=== PATIENT | male | born 1955 | race American Indian/Alaskan Native ===

== ENCOUNTER 2016-09-13 15:46 | Emergency (ER) | payer MEDICAID, MEDICARE, OTHER ==
[2016-09-13 15:58] VITALS: BMI 29.0
[2016-09-13 16:02] VITALS: TEMP 97.4
[2016-09-13] MEDS ORDERED: Albuterol-Ipratrop 3 mg / 0.5 (3 ml) UD IH STA (16:21)
--- NOTE | 2016-09-13 16:22 | ED PDOC ---
Arrival/HPI - General Chief Complaint: Shortness Of Breath Time Seen by Provider: 09/13/16 16:20 Historian: Patient - History of Present Illness Narrative History of Present Illness (Text): 09/13/16 16:21 A 61 year old male, whose past medical history includes asthma, tobacco use, presents to the emergency department complaining of shortness of breath for the past few days. Patient is requesting Steroid "shot" for his asthma, as well as nebulizer. Patient denies fever, cp, abdominal pain, urinary symptoms, leg edema, calf pain, recent travel, blood disorder, dizziness, or abnormal gait. Time/Duration: < week Symptom Course: Unchanged Context: Home Past Medical History - Provider Review Nursing Documentation Reviewed: Yes - Infectious Disease Hx of Infectious Diseases: None - Cardiac Hx Cardiac Disorders: Yes Hx Hypertension: Yes - Pulmonary Hx Respiratory Disorders: Yes Hx Asthma: Yes Hx Chronic Obstructive Pulmonary Disease (COPD): Yes - Neurological Hx Neurological Disorder: No HX Cerebrovascular Accident: No - HEENT Hx HEENT Disorder: No - Renal Hx Renal Disorder: No - Endocrine/Metabolic Hx Endocrine Disorders: Yes Hx Diabetes Mellitus Type 1: Yes - Hematological/Oncological Hx Blood Disorders: No Hx Cancer: No - Integumentary Hx Dermatological Disorder: No - Musculoskeletal/Rheumatological Hx Musculoskeletal Disorders: No - Gastrointestinal Hx Gastrointestinal Disorders: Yes Hx Gastrointestinal Ulcer: Yes - Genitourinary/Gynecological Hx Genitourinary Disorders: No - Psychiatric Hx Psychophysiologic Disorder: Yes Hx Schizophrenia: Yes Hx Substance Use: No - Surgical History Other/Comment: GI surgery due to ulcer 35 yrs. ago - Anesthesia Hx Anesthesia: Yes Hx Anesthesia Reactions: No Hx Malignant Hyperthermia: No - Suicidal Assessment Feels Threatened In Home Enviroment: No Family/Social History - Physician Review Nursing Documentation Reviewed: Yes Family/Social History: No Known Family HX Smoking Status: Current Some Days Smoker Hx Alcohol Use: Yes (stopped last november) Hx Substance Use: No Hx Substance Use Treatment: No Allergies/Home Meds Allergies/Adverse Reactions: Allergies cat dander Allergy (Verified 09/13/16 15:58) ITCHING Home Medications: Home Meds Medication Instructions Recorded Confirmed Losartan [Cozaar] 50 mg PO DAILY 02/11/14 09/13/16 Risperdal 4 mg PO QPM 02/11/14 09/13/16 Simvastatin 10 mg PO DAILY 02/11/14 09/13/16 Albuterol Sulfate [Albuterol Hfa] 0.09 mg IH BID PRN 01/29/15 09/13/16 Metformin HCl [Metformin] 1,000 mg PO BID 01/29/15 09/13/16 Zafirlukast 20 mg PO DAILY 02/04/15 09/13/16 Review of Systems - Review of Systems Constitutional: Normal. absent: Fatigue, Weight Change, Fevers Eyes: Normal ENT: Normal Respiratory: Wheezing. absent: Cough, Sputum Cardiovascular: Normal. absent: Chest Pain, Palpitations Gastrointestinal: Normal. absent: Abdominal Pain, Nausea, Vomiting Genitourinary Male: Normal Musculoskeletal: Normal Skin: Normal. absent: Rash Neurological: Normal. absent: Headache, Dizziness, Focal Weakness, Gait Changes , Speech Changes, Facial Droop, Disequilibrium Endocrine: Normal Hemo/Lymphatic: Normal Psychiatric: Normal Physical Exam Vital Signs Temp Pulse Resp BP Pulse Ox 09/13/16 16:01 97.4 F L 94 H 19 143/87 97 Temperature: Afebrile Blood Pressure: Normal Pulse: Regular Respiratory Rate: Normal Appearance: Positive for: Well-Appearing, Non-Toxic, Comfortable Pain Distress: None Mental Status: Positive for: Alert and Oriented X 3 - Systems Exam Head: Present: Atraumatic, Normocephalic Pupils: Present: PERRL Extroacular Muscles: Present: EOMI Conjunctiva: Present: Normal Mouth: Present: Moist Mucous Membranes Neck: Present: Normal Range of Motion Respiratory/Chest: Present: Good Air Exchange, Wheezes (mild generalized wheezing.). No: Respiratory Distress, Accessory Muscle Use, Decreased Breath Sounds, Rales, Retracting, Rhonchi, Tachypneic Cardiovascular: Present: Regular Rate and Rhythm, Normal S1, S2. No: Murmurs Abdomen: Present: Normal Bowel Sounds. No: Tenderness, Distention, Peritoneal Signs Back: Present: Normal Inspection Upper Extremity: Present: Normal Inspection, Normal ROM. No: Cyanosis, Edema Lower Extremity: Present: Normal Inspection, Normal ROM. No: Edema Neurological: Present: GCS=15, CN II-XII Intact, Speech Normal, Motor Func Grossly Intact, Normal Sensory Function, Normal Cerebellar Funct, Gait Normal, Memory Normal Skin: Present: Warm, Dry, Normal Color. No: Rashes Psychiatric: Present: Alert, Oriented x 3, Normal Insight, Normal Concentration Medical Decision Making ED Course and Treatment: 09/13/16 16:33 Patient speaks in full sentence. Patient requested Steroid IVP. Patient understands steroid are associated with osteoporosis, DM, glaucoma, AVN, and other bone condition. He still requested Steroid injection for his asthma. 09/13/16 17:02 Re-evaluation. Patient feels better. Discussed results and plan with patient who expresses understanding. Counseling was provided regarding the diagnosis and prognosis. All questions answered and there is agreement with the plan to discharge home with instructions. Patient stable for discharge. Return if symptoms persist or worsen. Lungs CTA b/l. No rhonchi, or wheezing Re-evaluation Time: 17:00 Reassessment Condition: Re-examined, Improving,but remains with symptoms - Medication Orders Current Medication Orders: Discontinued Medications Albuterol/Ipratropium (Duoneb 3 Mg/0.5 Mg (3 Ml) Ud) 6 ml IH STAT STA Stop: 09/13/16 16:22 Last Admin: 09/13/16 16:48 Dose: 6 ml Methylprednisolone (Solu-Medrol) 125 mg IVP STAT STA Stop: 09/13/16 16:21 Last Admin: 09/13/16 16:48 Dose: 125 mg Disposition/Present on Arrival - Present on Arrival Any Indicators Present on Arrival: No History of DVT/PE: No History of Uncontrolled Diabetes: No Urinary Catheter: No History of Decub. Ulcer: No History Surgical Site Infection Following: None - Disposition Have Diagnosis and Disposition been Completed?: Yes Diagnosis: Asthma exacerbation Disposition: HOME/ ROUTINE Disposition Time: 17:02 Patient Plan: Discharge Patient Problems: Current Active Problems Problem Status Onset Asthma exacerbation Acute Condition: GOOD Discharge Instructions (ExitCare): Asthma (ED) Additional Instructions: Call private doctor for follow up visit in 1-2 days. Take medication as instructed. Return to emergency if symptoms worsen. Prescriptions: Albuterol 0.083% [Albuterol 0.083% Inhal Crys (2.5 mg/3 ml) UD] 2.5 mg IH Q6H PRN #1 packet PRN Reason: Wheezing Prednisone [Deltasone] 40 mg PO DAILY #8 tablet Forms: [employer] ([place])
[2016-09-13 17:14] VITALS: RESP 18
[2016-09-13 17:27] VITALS: BP 139/93; PULSE 99; O2SAT 98
== END 2016-09-13 17:35 | disposition home or self-care (01) ==
LOC: ED 15:46
DX: J45.901 Unspecified asthma with (acute) exacerbation (principal)
CPT/HCPCS: 96374; 99284; J2930

== ENCOUNTER 2016-10-08 14:14 | Emergency (ER) | payer MEDICARE, OTHER ==
[2016-10-08 14:15] VITALS: BMI 29.0
[2016-10-08 14:20] VITALS: TEMP 99; O2SAT 98
[2016-10-08] MEDS ORDERED: Albuterol-Ipratrop 3 mg / 0.5 (3 ml) UD IH STA (14:40)
[2016-10-08] MEDS ORDERED: Magnesium Sulfate 2 GM in Sodium Chloride 0.9% 100 ML IVPB ONE (14:40)
[2016-10-08 15:07] LABS: BASO # 0.03 K/mm3 (0.0-2.0); BASO % 0.3 % (0.0-3.0); EOS # 0.2 (0.0-0.7); EOS % 1.6 % (1.5-5.0); GRAN # 5.6 (1.4-6.5); GRAN % 57.2 % (50.0-68.0); HEMATOCRIT 41.3 % (42.0-52.0); LYMPH # 3.1 (1.2-3.4); MEAN CELL VOLUME 87.7 fl (80.0-105.0); MEAN CORPUSCULAR HEMOGLOBIN 30.4 pg (25.0-35.0); MEAN CORPUSCULAR HGB CONC 34.6 g/dl (31.0-37.0); MEAN PLATELET VOLUME 10.5 fl (7.0-11.0); MONO # 0.9 (0.1-0.6); MONO % 8.9 % (1.0-6.0); RED CELL DISTRIBUTION WIDTH 14.2 % (11.5-14.5); WHITE BLOOD COUNT 9.8 10^3/ul (4.5-11.0)
--- NOTE | 2016-10-08 15:18 | RAD ---
HISTORY: SOB COMPARISON: Chest x-ray performed 04/18/16 TECHNIQUE: Chest, one view. FINDINGS: Examination limited by habitus. LUNGS: No focal consolidation. Please note that chest x-ray has limited sensitivity for the detection of pulmonary masses. PLEURA: No significant pleural effusion identified. No definite pneumothorax . CARDIOVASCULAR: Heart size appears within normal limits. Atherosclerotic calcifications of the aorta. OSSEOUS STRUCTURES: Degenerative changes. VISUALIZED UPPER ABDOMEN: Unremarkable. OTHER FINDINGS: None. IMPRESSION: No focal consolidation, significant pleural effusion, or definite pneumothorax identified.
[2016-10-08 15:19] LABS: ALB/GLOB RATIO 1.5 (1.1-1.8); ALKALINE PHOSPHATASE 48 U/L (38-126); ALT/SGPT 62 U/L (7-56); AST/SGOT 41 U/L (17-59); BILIRUBIN,TOTAL 0.6 mg/dL (0.2-1.3); BLOOD UREA NITROGEN 13 mg/dL (7-21); CALCIUM 9.3 mg/dL (8.4-10.5); CARBON DIOXIDE 25 mmol/L (21-33); CHLORIDE 103 mmol/L (98-107); GFR AFRICAN-AMERICAN > 60; GLUCOSE,RANDOM 132 mg/dL (70-110); POTASSIUM 4.6 mmol/L (3.6-5.0); SODIUM 138 mmol/L (132-148); TOTAL PROTEIN 7.4 g/dL (5.8-8.3)
[2016-10-08 15:41] LABS: TROPONIN I 0.19 ng/mL
[2016-10-08 16:29] VITALS: BP 153/92; PULSE 85; RESP 16
--- NOTE | 2016-10-08 17:53 | ED PDOC ---
Arrival/HPI - General Chief Complaint: Shortness Of Breath Time Seen by Provider: 10/08/16 14:23 Historian: Patient - History of Present Illness Narrative History of Present Illness (Text): 10/08/16 17:53 A 61 year old male with a smoking social history, whose past medical history includes, urticaria, schizophrenia, and asthma, presents to the emergency department for asthma symptoms, which began about 3 days ago. The patient denies any cough, fever, chest pain, abdominal pain, or any other complaints at this time. The patient denies any recent travel, suicidal or homicidal ideation , or hallucinations. Time/Duration: < week (x 3 days ) Symptom Onset: Sudden, Gradual Symptom Course: Unchanged Activities at Onset: Light Context: Home Past Medical History - Provider Review Nursing Documentation Reviewed: Yes - Infectious Disease Hx of Infectious Diseases: None - Cardiac Hx Cardiac Disorders: Yes Hx Hypertension: Yes - Pulmonary Hx Respiratory Disorders: Yes Hx Asthma: Yes Hx Chronic Obstructive Pulmonary Disease (COPD): Yes - Neurological Hx Neurological Disorder: No HX Cerebrovascular Accident: No - HEENT Hx HEENT Disorder: No - Renal Hx Renal Disorder: No - Endocrine/Metabolic Hx Endocrine Disorders: Yes Hx Diabetes Mellitus Type 1: Yes - Hematological/Oncological Hx Blood Disorders: No Hx Cancer: No - Integumentary Hx Dermatological Disorder: No - Musculoskeletal/Rheumatological Hx Musculoskeletal Disorders: No - Gastrointestinal Hx Gastrointestinal Disorders: Yes Hx Gastrointestinal Ulcer: Yes - Genitourinary/Gynecological Hx Genitourinary Disorders: No - Psychiatric Hx Psychophysiologic Disorder: Yes Hx Schizophrenia: Yes Hx Substance Use: No - Surgical History Other/Comment: GI surgery due to ulcer 35 yrs. ago - Anesthesia Hx Anesthesia: Yes Hx Anesthesia Reactions: No Hx Malignant Hyperthermia: No - Suicidal Assessment Feels Threatened In Home Enviroment: No Family/Social History - Physician Review Nursing Documentation Reviewed: Yes Family/Social History: No Known Family HX Smoking Status: Current Some Days Smoker Hx Alcohol Use: Yes (stopped last november) Hx Substance Use: No Hx Substance Use Treatment: No Allergies/Home Meds Allergies/Adverse Reactions: Allergies cat dander Allergy (Verified 10/08/16 14:20) ITCHING Home Medications: Home Meds Medication Instructions Recorded Confirmed Losartan [Cozaar] 50 mg PO DAILY 02/11/14 10/08/16 Risperdal 4 mg PO QPM 02/11/14 10/08/16 Simvastatin 10 mg PO DAILY 02/11/14 10/08/16 Albuterol Sulfate [Albuterol Hfa] 0.09 mg IH BID PRN 01/29/15 10/08/16 Metformin HCl [Metformin] 1,000 mg PO BID 01/29/15 10/08/16 Zafirlukast 20 mg PO DAILY 02/04/15 10/08/16 Prednisone [Deltasone] 20 mg PO DAILY 10/08/16 10/08/16 Review of Systems - Physician Review All systems were reviewed & negative as marked: Yes - Review of Systems Constitutional: Other (asthma like symptoms ). absent: Fevers Respiratory: SOB. absent: Cough Cardiovascular: Chest Pain Gastrointestinal: absent: Abdominal Pain Psychiatric: absent: Suicidal Ideation Physical Exam Vital Signs Temp Pulse Resp BP Pulse Ox 10/08/16 16:28 85 16 153/92 H 98 10/08/16 15:24 18 10/08/16 14:16 99 F 100 H 21 125/86 98 Temperature: Afebrile Blood Pressure: Normal Pulse: Tachycardic Respiratory Rate: Normal Appearance: Positive for: Well-Appearing, Non-Toxic, Comfortable Pain Distress: None Mental Status: Positive for: Alert and Oriented X 3 - Systems Exam Head: Present: Atraumatic, Normocephalic Pupils: Present: PERRL Extroacular Muscles: Present: EOMI Conjunctiva: Present: Normal Mouth: Present: Moist Mucous Membranes Neck: Present: Normal Range of Motion Respiratory/Chest: Present: Wheezes (bilateral expiratory), Other (good air enterance). No: Respiratory Distress, Accessory Muscle Use Cardiovascular: Present: Regular Rate and Rhythm, Normal S1, S2. No: Murmurs Abdomen: Present: Normal Bowel Sounds. No: Tenderness, Distention, Peritoneal Signs Back: Present: Normal Inspection Upper Extremity: Present: Normal Inspection. No: Cyanosis, Edema Lower Extremity: Present: Normal Inspection. No: Edema Neurological: Present: GCS=15, CN II-XII Intact, Speech Normal Skin: Present: Warm, Dry, Normal Color. No: Rashes Psychiatric: Present: Alert, Oriented x 3, Normal Insight, Normal Concentration , Other (The patient is talking in full sentences.). No: Suicidal Ideation, Homicidal Ideation, Hallucinations Medical Decision Making ED Course and Treatment: 10/08/16 17:57 Impression: A 61 year old male with asthma like symptoms. Differential Diagnosis included but are not limited to: Plan: -- EKG -- Chest X-ray -- Labs -- Aspirin, Duoneb, IV Fluids -- Reassess and disposition Prior Visits: Notes and results from previous visits were reviewed. The patient was last seen in the emergency department on 09/13/16 for shortness of breath. The patient was discharged home. Progress Notes: EKG: Ordered, reviewed, and independently interpreted the EKG. Rate : 87 BPM Rhythm : NSR Interpretation : No ST-segment elevations or depressions, no T-wave inversions, normal intervals. Comparison : No previous EKG for comparison. I have reviewed labs with the patient, especially on the elevated Troponin levels. I explained to the patient that this may be an indication of a silent recent heart attack, which requires hospitalization for further evaluation. The patient further denied suicidal ideation and hallucinations and was able to repeat what I told him about his elevated Troponin levels. The patient understands his risk for sudden and he signed himself out against medical advice. Leaving Against Medical Advice (AMA): The patient is choosing to leave against medical advice. I have personally explained to the patient that choosing to do so may result in permanent bodily harm or . I have discussed at great length that without further evaluation and monitoring there may be unforeseen circumstances and/or deterioration causing permanent bodily harm or as a result of their choice. The patient is alert, oriented, and shows the mental capacity to make clear decisions regarding the patients health care at this time. The patient continues to wish to leave against medical advice. In light of the patients decision to leave against medical advice, follow-up has been arranged and the patient is aware of the importance to following up as instructed. The patient has been advised that they should return to the emergency room immediately if they change their mind at any time, or if their condition begins to change or worsen in any way. - Lab Interpretations Lab Results: 10/08/16 15:00 10/08/16 15:00 Lab Results 10/08/16 15:00: Sodium 138, Potassium 4.6, Chloride 103, Carbon Dioxide 25, Anion Gap 15, BUN 13, Creatinine 1.1, Est GFR ( Amer) > 60, Est GFR (Non- Af Amer) > 60, Random Glucose 132 H, Calcium 9.3, Total Bilirubin 0.6, AST 41, ALT 62 H, Alkaline Phosphatase 48, Lactate Dehydrogenase 570, Total Creatine Kinase 741 H, CK-MB (CK-2) 5.0 H, CK-MB (CK-2) % 0.7 L, Troponin I 0.19 H*, NT- Pro-B Natriuret Pep < 11.1, Total Protein 7.4, Albumin 4.4, Globulin 2.9, Albumin/Globulin Ratio 1.5 10/08/16 15:00: WBC 9.8 D, RBC 4.71, Hgb 14.3, Hct 41.3 L, MCV 87.7, MCH 30.4, MCHC 34.6, RDW 14.2, Plt Count 246, MPV 10.5, Gran % 57.2, Lymph % (Auto) 32.0, [place] % (Auto) 8.9 H, Eos % (Auto) 1.6, Baso % (Auto) 0.3, Gran # 5.60, Lymph # 3.1, [place] # 0.9 H, Eos # 0.2, Baso # 0.03 - RAD Interpretation Radiology Orders: 10/08/16 14:39 CHEST PORTABLE [RAD] Stat - Medication Orders Current Medication Orders: Discontinued Medications Albuterol/Ipratropium (Duoneb 3 Mg/0.5 Mg (3 Ml) Ud) 3 ml IH STAT STA Stop: 10/08/16 14:41 Last Admin: 10/08/16 15:23 Dose: 3 ml Aspirin (Aspirin) 325 mg PO STAT STA Stop: 10/08/16 16:09 Last Admin: 10/08/16 16:15 Dose: 325 mg Magnesium Sulfate 2 gm/ Sodium (Chloride) 104 mls @ 102 mls/hr IVPB ONCE ONE Stop: 10/08/16 15:41 Last Admin: 10/08/16 15:23 Dose: 102 mls/hr Methylprednisolone (Solu-Medrol) 125 mg IVP STAT STA Stop: 10/08/16 14:40 Last Admin: 10/08/16 15:23 Dose: 125 mg - Scribe Statement The provider has reviewed the documentation as recorded by the Kimberly Plasencia Provider Scribe Attestation: All medical record entries made by the Lacyibjorge were at my direction and personally dictated by me. I have reviewed the chart and agree that the record accurately reflects my personal performance of the history, physical exam, medical decision making, and the department course for this patient. I have also personally directed, reviewed, and agree with the discharge instructions and disposition. Disposition/Present on Arrival - Present on Arrival Any Indicators Present on Arrival: No History of DVT/PE: No History of Uncontrolled Diabetes: No Urinary Catheter: No History of Decub. Ulcer: No History Surgical Site Infection Following: None - Disposition Have Diagnosis and Disposition been Completed?: Yes Diagnosis: NSTEMI (non-ST elevated myocardial infarction), Asthma Disposition: AGAINST MEDICAL ADVICE Disposition Time: 16:10 Condition: SERIOUS Discharge Instructions (ExitCare): Myocardial Infarction (GEN), Asthma (ED) Additional Instructions: Thank you for letting us take care of you today. Your provider was Dr. Wheatley. You were treated for asthma and a heart attack. The emergency medical care you received today was directed at your acute symptoms. If you were prescribed any medication, please fill it and take as directed. It may take several days for your symptoms to resolve. Return to the Emergency Department if your symptoms worsen, do not improve, or if you have any other problems. Please contact your doctor or call one of the physicians/clinics you have been referred to that are listed on the Patient Visit Information form that is included in your discharge packet. Bring any paperwork you were given at discharge with you along with any medications you are taking to your follow up visit. Our treatment cannot replace ongoing medical care by a primary care provider (PCP) outside of the emergency department. [facility] care [facility]. YOU HAD A HEART ATTACK. YOU SHOULD HAVE STAYED IN THE HOSPITAL. YOU HAVE LEFT AGAINST MEDICAL ADVICE. FOLLOW UP IMMEDIATELY WITH YOUR DOCTOR OR THE EMERGENCY ROOM. IF YOU EXPERIENCE ANY PAIN, RETURN TO THE EMERGENCY ROOM IMMEDIATELY. Prescriptions: Aspirin 325 mg PO DAILY #14 tab predniSONE [Prednisone] 40 mg PO DAILY #10 tab Referrals: [facility] [Outside] - Follow up with primary [facility] [place] - Follow up with primary Forms: [employer] (Citizen Of [place])
--- NOTE | 2016-10-10 07:26 | CARD ---
APPROVED REPORT EKG Measurement Heart [id number] <Conclusion> Normal sinus rhythm Normal ECG
== END 2016-10-08 16:34 | disposition left against medical advice (07) ==
LOC: ED 14:14
DX: I21.4 Non-ST elevation (NSTEMI) myocardial infarction (principal); J45.909 Unspecified asthma, uncomplicated
CPT/HCPCS: 71010; 80053; 82550; 82553; 83615; 83880; 84484; 85025; 93005; 96374; 99284; J2930; J3475

== ENCOUNTER 2017-08-05 12:56 | Emergency (ER) | payer MEDICARE, OTHER ==
[2017-08-05] MEDS ORDERED: Albuterol-Ipratrop 3 mg / 0.5 (3 ml) UD IH STA (13:01)
[2017-08-05 13:05] VITALS: BMI 30.9
--- NOTE | 2017-08-05 13:46 | ED PDOC ---
Arrival/HPI - General Chief Complaint: Respiratory Distress Time Seen by Provider: 08/05/17 12:59 Historian: Patient - History of Present Illness Narrative History of Present Illness (Text): 08/05/17 13:43 62yo male with pmhx of Asthma, schizophrenia and hypertension who present with complaint of wheezing x 3days. States he ran out of his inhaler. Denies fever, chills, cough, sick contact, travel, chest pain, SOB, any other complaint. Past Medical History - Provider Review Nursing Documentation Reviewed: Yes - Infectious Disease Hx of Infectious Diseases: None - Cardiac Hx Cardiac Disorders: Yes Hx Hypertension: Yes - Pulmonary Hx Respiratory Disorders: Yes Hx Asthma: Yes Hx Chronic Obstructive Pulmonary Disease (COPD): Yes - Neurological Hx Neurological Disorder: No HX Cerebrovascular Accident: No - HEENT Hx HEENT Disorder: No - Renal Hx Renal Disorder: No - Endocrine/Metabolic Hx Endocrine Disorders: Yes Hx Diabetes Mellitus Type 1: Yes - Hematological/Oncological Hx Blood Disorders: No Hx Cancer: No - Integumentary Hx Dermatological Disorder: No - Musculoskeletal/Rheumatological Hx Musculoskeletal Disorders: No - Gastrointestinal Hx Gastrointestinal Disorders: Yes Hx Gastrointestinal Ulcer: Yes - Genitourinary/Gynecological Hx Genitourinary Disorders: No - Psychiatric Hx Psychophysiologic Disorder: Yes Hx Schizophrenia: Yes Hx Substance Use: No - Surgical History Other/Comment: GI surgery due to ulcer 35 yrs. ago - Anesthesia Hx Anesthesia: Yes Hx Anesthesia Reactions: No Hx Malignant Hyperthermia: No - Suicidal Assessment Feels Threatened In Home Enviroment: No Family/Social History - Physician Review Nursing Documentation Reviewed: Yes Family/Social History: Unknown Family HX Smoking Status: Current Some Days Smoker Hx Alcohol Use: Yes (stopped last november) Hx Substance Use: No Hx Substance Use Treatment: No Allergies/Home Meds Allergies/Adverse Reactions: Allergies cat dander Allergy (Verified 08/05/17 13:01) ITCHING Home Medications: Home Meds Medication Instructions Recorded Confirmed Losartan [Cozaar] 50 mg PO DAILY 02/11/14 08/05/17 Simvastatin 10 mg PO DAILY 02/11/14 08/05/17 Metformin HCl [Metformin] 1,000 mg PO BID 01/29/15 08/05/17 Risperidone [Risperdal] 4 mg PO QPM 08/05/17 08/05/17 Zafirlukast [Accolate] 20 mg PO DAILY 08/05/17 08/05/17 Review of Systems - Physician Review All systems were reviewed & negative as marked: Yes - Review of Systems Constitutional: Normal Eyes: Normal ENT: Normal Respiratory: Wheezing. absent: SOB, Cough, Sputum Cardiovascular: Normal Gastrointestinal: Normal Genitourinary Male: Normal Musculoskeletal: Normal Skin: Normal Neurological: Normal Endocrine: Normal Hemo/Lymphatic: Normal Psychiatric: Normal Physical Exam Vital Signs Reviewed: Yes Vital Signs Temp Pulse Resp BP Pulse Ox 08/05/17 13:04 20 97 08/05/17 13:02 97.6 F 95 H 18 134/97 H 98 Temperature: Afebrile Blood Pressure: Normal Pulse: Regular Respiratory Rate: Normal Appearance: Positive for: Well-Appearing, Non-Toxic, Comfortable Pain Distress: None Mental Status: Positive for: Alert and Oriented X 3 - Systems Exam Head: Present: Atraumatic, Normocephalic Pupils: Present: PERRL Extroacular Muscles: Present: EOMI Conjunctiva: Present: Normal Mouth: Present: Moist Mucous Membranes Neck: Present: Normal Range of Motion Respiratory/Chest: Present: Clear to Auscultation, Good Air Exchange, Wheezes ( Very minimal expiratory wheeze at the bases). No: Respiratory Distress, Accessory Muscle Use, Decreased Breath Sounds, Rales, Retracting, Rhonchi, Tachypneic Cardiovascular: Present: Regular Rate and Rhythm, Normal S1, S2. No: Murmurs Abdomen: No: Tenderness, Distention, Peritoneal Signs Back: Present: Normal Inspection Upper Extremity: Present: Normal Inspection. No: Cyanosis, Edema Lower Extremity: Present: Normal Inspection. No: Edema Neurological: Present: GCS=15, CN II-XII Intact, Speech Normal Skin: Present: Warm, Dry, Normal Color. No: Rashes Psychiatric: Present: Alert, Oriented x 3, Normal Insight, Normal Concentration Medical Decision Making ED Course and Treatment: 08/05/17 13:55 PT present to ED for stated history. He was not hypoxic on presentation and talking in full sentence and ambulating without distress. He was treated in ED with Duoneb and prednisone . On re evaluation his Lung was CTA b/l. He was DC home with a rx of Prednisone and albuterol. Referred to his PMD. - Medication Orders Current Medication Orders: Discontinued Medications Albuterol/Ipratropium (Duoneb 3 Mg/0.5 Mg (3 Ml) Ud) 3 ml IH Q15M STA Stop: 08/05/17 13:02 Last Admin: 08/05/17 13:08 Dose: 3 ml Prednisone (Prednisone Tab) 40 mg PO STAT STA Stop: 08/05/17 13:02 Last Admin: 08/05/17 13:07 Dose: 40 mg Disposition/Present on Arrival - Present on Arrival Any Indicators Present on Arrival: No History of DVT/PE: No History of Uncontrolled Diabetes: No Urinary Catheter: No History of Decub. Ulcer: No History Surgical Site Infection Following: None - Disposition Have Diagnosis and Disposition been Completed?: Yes Diagnosis: Asthma attack Disposition: HOME/ ROUTINE Disposition Time: 13:45 Patient Plan: Discharge Patient Problems: Current Active Problems Problem Status Onset Asthma attack Acute Condition: STABLE Discharge Instructions (ExitCare): Asthma in Adults Additional Instructions: Follow up with your doctor Return to ED for any new symptoms Prescriptions: Albuterol HFA [Ventolin HFA 90 mcg/actuation (8 g)] 2 puff IH [id number] #1 puff predniSONE [Prednisone] 20 mg PO DAILY #3 tab Referrals: [facility] [place] [facility] [place] - Follow up with primary Forms: [employer] ([place])
[2017-08-05 14:07] VITALS: BP 132/78; PULSE 88; RESP 18; TEMP 98.6; O2SAT 99
== END 2017-08-05 14:00 | disposition home or self-care (01) ==
LOC: ED 12:56
DX: J45.909 Unspecified asthma, uncomplicated (principal); F20.9 Schizophrenia, unspecified; I10 Essential (primary) hypertension

== ENCOUNTER 2017-10-23 15:29 | Emergency (ER) | payer MEDICARE, OTHER ==
[2017-10-23 15:29] VITALS: BMI 30.9
--- NOTE | 2017-10-23 16:25 | ED PDOC ---
Arrival/HPI - General Time Seen by Provider: 10/23/17 15:49 - History of Present Illness Narrative History of Present Illness (Text): 10/23/17 16:23 62 yo male hx of asthma, schizophrenia, presents iwth cough/wheezing sob for last few days. well known to er. no cp, abd pain, chest tighntess. specifically requests "iv steriod shot" Past Medical History - Infectious Disease Hx of Infectious Diseases: None - Cardiac Hx Hypertension: Yes - Pulmonary Hx Asthma: Yes Hx Chronic Obstructive Pulmonary Disease (COPD): Yes - Neurological Hx Neurological Disorder: No HX Cerebrovascular Accident: No - HEENT Hx HEENT Disorder: No - Renal Hx Renal Disorder: No - Endocrine/Metabolic Hx Endocrine Disorders: Yes Hx Diabetes Mellitus Type 1: Yes - Hematological/Oncological Hx Blood Disorders: No Hx Cancer: No - Integumentary Hx Dermatological Disorder: No - Musculoskeletal/Rheumatological Hx Musculoskeletal Disorders: No - Gastrointestinal Hx Gastrointestinal Ulcer: Yes - Genitourinary/Gynecological Hx Genitourinary Disorders: No - Psychiatric Hx Schizophrenia: Yes Hx Substance Use: No - Surgical History Other/Comment: GI surgery due to ulcer 35 yrs. ago - Anesthesia Hx Anesthesia: Yes Hx Anesthesia Reactions: No Hx Malignant Hyperthermia: No - Suicidal Assessment Feels Threatened In Home Enviroment: No Family/Social History Family/Social History: Unknown Family HX Smoking Status: Heavy Smoker > 10 Cigarettes Daily Hx Alcohol Use: Yes (stopped last november) Hx Substance Use: No Hx Substance Use Treatment: No Allergies/Home Meds Allergies/Adverse Reactions: Allergies cat dander Allergy (Verified 10/06/17 18:56) ITCHING Home Medications: Home Meds Medication Instructions Recorded Confirmed Losartan [Cozaar] 50 mg PO DAILY 02/11/14 08/05/17 Simvastatin 10 mg PO DAILY 02/11/14 08/05/17 Metformin HCl [Metformin] 1,000 mg PO BID 01/29/15 08/05/17 Risperidone [Risperdal] 4 mg PO QPM 08/05/17 08/05/17 Zafirlukast [Accolate] 20 mg PO DAILY 08/05/17 08/05/17 Review of Systems - Review of Systems Constitutional: Normal Eyes: Normal ENT: Normal Respiratory: Cough, Wheezing Cardiovascular: Normal Gastrointestinal: Normal Genitourinary Male: Normal Musculoskeletal: Normal Skin: Normal Neurological: Normal Endocrine: Normal Hemo/Lymphatic: Normal Psychiatric: Normal Physical Exam Vital Signs Temp Pulse Resp BP Pulse Ox 10/23/17 19:51 98.2 F 85 18 125/65 94 L 10/23/17 15:29 14 Temperature: Afebrile Blood Pressure: Normal Pulse: Regular Respiratory Rate: Normal Appearance: Positive for: Well-Appearing, Non-Toxic, Comfortable, Other ( smiling joking with staff) Pain Distress: None Mental Status: Positive for: Alert and Oriented X 3 - Systems Exam Head: Present: Atraumatic, Normocephalic Pupils: Present: PERRL Extroacular Muscles: Present: EOMI Conjunctiva: Present: Normal Mouth: Present: Moist Mucous Membranes Neck: Present: Normal Range of Motion Respiratory/Chest: Present: Good Air Exchange, Wheezes (b/l to all lung [place]) . No: Respiratory Distress, Accessory Muscle Use Cardiovascular: Present: Regular Rate and Rhythm, Normal S1, S2. No: Murmurs Abdomen: No: Tenderness, Distention, Peritoneal Signs Back: Present: Normal Inspection Upper Extremity: Present: Normal Inspection. No: Cyanosis, Edema Lower Extremity: Present: Normal Inspection. No: Edema Neurological: Present: GCS=15, CN II-XII Intact, Speech Normal Skin: Present: Warm, Dry, Normal Color. No: Rashes Psychiatric: Present: Alert, Oriented x 3, Normal Insight, Normal Concentration Medical Decision Making ED Course and Treatment: 10/23/17 16:27 Impression: 62 year old male presents to the Emergency department complaining of shortness of breath. Plan: -- EKG -- Labs -- Chest X-ray -- Albuterol -- Solumedrol -- Reassess and disposition Prior Visits: Notes and results from previous visits were reviewed. Progress Notes: 10/23/17 17:25 EKG: Ordered, reviewed, and independently interpreted the EKG. Rate : 76 BPM Rhythm : NSR Interpretation : No ST-segment elevations or depressions, no T-wave inversions, normal intervals. 10/25/17 19:36 pt endorsed pending chem, and reassess and final dispo - Lab Interpretations Lab Results: 10/23/17 18:41 10/23/17 18:41 Lab Results 10/23/17 18:41: Sodium 139, Potassium 4.9, Chloride 103, Carbon Dioxide 27, Anion Gap 15, BUN 19, Creatinine 1.2, Est GFR ( Amer) > 60, Est GFR (Non- Af Amer) > 60, Random Glucose 132 H, Calcium 9.7, Total Bilirubin 0.8, AST 40, ALT 47, Alkaline Phosphatase 50, Lactate Dehydrogenase 594, Total Creatine Kinase 562 H, CK-MB (CK-2) 8.0 H, CK-MB (CK-2) % 1.4 L, Troponin I < 0.01 D, Total Protein 7.4, Albumin 4.5, Globulin 2.9, Albumin/Globulin Ratio 1.5 10/23/17 18:41: PT 11.4, INR 1.00, APTT 28.7 10/23/17 18:41: WBC 14.6 H D, RBC 4.69, Hgb 14.1, Hct 41.9 L, MCV 89.3, MCH 30.1 , MCHC 33.7, RDW 14.1, Plt Count 271, MPV 10.8, Gran % 67.2, Lymph % (Auto) 25.9 , [place] % (Auto) 6.8 H, Eos % (Auto) 0.0 L, Baso % (Auto) 0.1, Gran # 9.82 H, Lymph # (Auto) 3.8 H, [place] # (Auto) 1.0 H, Eos # (Auto) 0.0, Baso # (Auto) 0.01 - RAD Interpretation Radiology Orders: 10/23/17 16:22 CXR [CHEST TWO VIEWS (PA/LAT)] [RAD] Stat - Medication Orders Current Medication Orders: Discontinued Medications Albuterol Sulfate (Albuterol 0.083% Inhal Crys (2.5 Mg/3 Ml) Ud) 2.5 mg INH STAT STA Stop: 10/23/17 20:21 Last Admin: 10/23/17 20:35 Dose: 2.5 mg Albuterol/Ipratropium (Duoneb 3 Mg/0.5 Mg (3 Ml) Ud) 3 ml IH Q15M [id number] Stop: 10/23/17 17:01 Last Admin: 10/23/17 19:10 Dose: 3 ml Methylprednisolone (Solu-Medrol) 125 mg IVP STAT STA Stop: 10/23/17 16:23 Last Admin: 10/23/17 18:10 Dose: 125 mg IVP Administration Document 10/23/17 18:10 HI (Rec: 10/23/17 20:35 HI [id number]) Charges for Administration # of IVP Administrations 1 Disposition/Present on Arrival - Present on Arrival Any Indicators Present on Arrival: No History of DVT/PE: No History of Uncontrolled Diabetes: No Urinary Catheter: No History Surgical Site Infection Following: None - Disposition Have Diagnosis and Disposition been Completed?: Yes Diagnosis: COPD exacerbation Disposition: HOME/ ROUTINE Disposition Time: 07:00 Condition: STABLE Discharge Instructions (ExitCare): Chronic Obstructive Pulmonary Disease (COPD) , Including Emphysema Prescriptions: Albuterol HFA [Ventolin HFA 90 mcg/actuation (8 g)] 2 puff IH [id number] 30 Days # 1 puff Methylprednisolone [Medrol Dose Pack (21 tabs)] 4 mg PO DAILY #21 mg Referrals: Jose Reddy MD [Primary Care Provider] - Follow up with primary Forms: [employer] (Hungarian)
--- NOTE | 2017-10-23 17:56 | RAD ---
Date of service: 10/23/2017 HISTORY: asthma COMPARISON: 10/08/2016. TECHNIQUE: Chest PA and lateral FINDINGS: LUNGS: No active pulmonary disease. PLEURA: No significant pleural effusion identified. No pneumothorax apparent. CARDIOVASCULAR: No radiographic findings to suggest acute or significant cardiovascular disease. OSSEOUS STRUCTURES: No significant abnormalities. VISUALIZED UPPER ABDOMEN: Normal. OTHER FINDINGS: None. IMPRESSION: No active disease. No significant interval change compared to the prior examination(s).
[2017-10-23] MEDS: Albuterol-Ipratrop 3 mg / 0.5 (3 ml) UD IH SCH ×3 (18:10→19:10)
[2017-10-23 18:49] LABS: BASO # 0.01 K/mm3 (0.0-2.0); BASO % 0.1 % (0.0-3.0); GRAN # 9.82 (1.4-6.5); GRAN % 67.2 % (50.0-68.0); HEMOGLOBIN 14.1 g/dL (14.0-18.0); LYMPH # 3.8 (1.2-3.4); LYMPH % 25.9 % (22.0-35.0); MEAN CELL VOLUME 89.3 fl (80.0-105.0); MEAN CORPUSCULAR HEMOGLOBIN 30.1 pg (25.0-35.0); MEAN CORPUSCULAR HGB CONC 33.7 g/dl (31.0-37.0); MEAN PLATELET VOLUME 10.8 fl (7.0-11.0); MONO % 6.8 % (1.0-6.0); RBC 4.69 10^6/uL (3.5-6.1); RED CELL DISTRIBUTION WIDTH 14.1 % (11.5-14.5); WHITE BLOOD COUNT 14.6 10^3/ul (4.5-11.0)
[2017-10-23 18:58] LABS: PARTIAL THROMBOPLASTIN TIME 28.7 Seconds (25.1-36.5); PROTHROMBIN TIME 11.4 SECONDS (9.4-12.5)
[2017-10-23 18:59] LABS: ALB/GLOB RATIO 1.5 (1.1-1.8); ALBUMIN 4.5 g/dL (3.0-4.8); ALT/SGPT 47 U/L (7-56); AST/SGOT 40 U/L (17-59); BLOOD UREA NITROGEN 19 mg/dL (7-21); CALCIUM 9.7 mg/dL (8.4-10.5); GFR NON-AFRICAN AMERICAN > 60
--- NOTE | 2017-10-23 19:06 | ED PDOC ---
Physical Exam Vital Signs Temp Pulse Resp BP Pulse Ox 10/23/17 19:51 98.2 F 85 18 125/65 94 L 10/23/17 15:29 14 Temperature: Afebrile Blood Pressure: Normal Pulse: Regular Respiratory Rate: Normal Appearance: Positive for: Well-Appearing, Non-Toxic, Comfortable Pain Distress: None Mental Status: Positive for: Alert and Oriented X 3 - Systems Exam Head: Present: Atraumatic, Normocephalic Pupils: Present: PERRL Extroacular Muscles: Present: EOMI Conjunctiva: Present: Normal Mouth: Present: Moist Mucous Membranes Neck: Present: Normal Range of Motion Respiratory/Chest: Present: Good Air Exchange, Wheezes (bilateral). No: Respiratory Distress, Accessory Muscle Use Cardiovascular: Present: Regular Rate and Rhythm, Normal S1, S2. No: Murmurs Abdomen: No: Tenderness, Distention, Peritoneal Signs Back: Present: Normal Inspection Upper Extremity: Present: Normal Inspection. No: Cyanosis, Edema Lower Extremity: Present: Normal Inspection. No: Edema Neurological: Present: GCS=15, CN II-XII Intact, Speech Normal Skin: Present: Warm, Dry, Normal Color. No: Rashes Psychiatric: Present: Alert, Oriented x 3, Normal Insight, Normal Concentration Medical Decision Making ED Course and Treatment: 10/23/17 19:04 Case endorsed to me by Dr. Hutchison for pending reassessment and final disposition. Patient is a 62 year old male, who presented to the Emergency department earlier today complaining of shortness of breath. Patient is currently resting in bed in no acute distress. Patient presents no new medical complaints. 10/23/17 20:20 Labs reviewed with troponin negative. Upon reviewed of labs, patient is noted to have persistent elevated leukocytosis at baseline. Patient reassessed and feels better. He requests scripts for albuterol and steroids. Pulmonary exam improved from previous. Patient encouraged to see his PMD within 1-2 days with the understanding of monitoring his symptoms. He acknowledges and states he will see his PCP tomorrow. Scripts provided. He is stable for discharge. 10/23/17 21:05 - Lab Interpretations Lab Results: 10/23/17 18:41 10/23/17 18:41 Lab Results 10/23/17 18:41: Sodium 139, Potassium 4.9, Chloride 103, Carbon Dioxide 27, Anion Gap 15, BUN 19, Creatinine 1.2, Est GFR ( Amer) > 60, Est GFR (Non- Af Amer) > 60, Random Glucose 132 H, Calcium 9.7, Total Bilirubin 0.8, AST 40, ALT 47, Alkaline Phosphatase 50, Lactate Dehydrogenase 594, Total Creatine Kinase 562 H, CK-MB (CK-2) 8.0 H, CK-MB (CK-2) % 1.4 L, Troponin I < 0.01 D, Total Protein 7.4, Albumin 4.5, Globulin 2.9, Albumin/Globulin Ratio 1.5 10/23/17 18:41: PT 11.4, INR 1.00, APTT 28.7 10/23/17 18:41: WBC 14.6 H D, RBC 4.69, Hgb 14.1, Hct 41.9 L, MCV 89.3, MCH 30.1 , MCHC 33.7, RDW 14.1, Plt Count 271, MPV 10.8, Gran % 67.2, Lymph % (Auto) 25.9 , [place] % (Auto) 6.8 H, Eos % (Auto) 0.0 L, Baso % (Auto) 0.1, Gran # 9.82 H, Lymph # (Auto) 3.8 H, [place] # (Auto) 1.0 H, Eos # (Auto) 0.0, Baso # (Auto) 0.01 - RAD Interpretation Radiology Orders: 10/23/17 16:22 CXR [CHEST TWO VIEWS (PA/LAT)] [RAD] Stat - Medication Orders Current Medication Orders: Discontinued Medications Albuterol Sulfate (Albuterol 0.083% Inhal Crys (2.5 Mg/3 Ml) Ud) 2.5 mg INH STAT STA Stop: 10/23/17 20:21 Last Admin: 10/23/17 20:35 Dose: 2.5 mg Albuterol/Ipratropium (Duoneb 3 Mg/0.5 Mg (3 Ml) Ud) 3 ml IH Q15M ZIYAD Stop: 10/23/17 17:01 Last Admin: 10/23/17 19:10 Dose: 3 ml Methylprednisolone (Solu-Medrol) 125 mg IVP STAT STA Stop: 10/23/17 16:23 Last Admin: 10/23/17 18:10 Dose: 125 mg IVP Administration Document 10/23/17 18:10 HI (Rec: 10/23/17 20:35 RI [id number]) Charges for Administration # of IVP Administrations 1 - Scribe Statement The provider has reviewed the documentation as recorded by the Scribe Alejandra Wolfe. All medical record entries made by the Scribe were at my direction and personally dictated by me. I have reviewed the chart and agree that the record accurately reflects my personal performance of the history, physical exam, medical decision making, and the department course for this patient. I have also personally directed, reviewed, and agree with the discharge instructions and disposition. Disposition/Present on Arrival - Present on Arrival Any Indicators Present on Arrival: No History of DVT/PE: No History of Uncontrolled Diabetes: No Urinary Catheter: No History Surgical Site Infection Following: None - Disposition Have Diagnosis and Disposition been Completed?: Yes Diagnosis: COPD exacerbation Disposition: HOME/ ROUTINE Disposition Time: 20:29 Patient Plan: Discharge Patient Problems: Current Active Problems Problem Status Onset COPD exacerbation Acute Condition: STABLE Discharge Instructions (ExitCare): Chronic Obstructive Pulmonary Disease (COPD) , Including Emphysema Prescriptions: Albuterol HFA [Ventolin HFA 90 mcg/actuation (8 g)] 2 puff IH [id number] 30 Days # 1 puff Methylprednisolone [Medrol Dose Pack (21 tabs)] 4 mg PO DAILY #21 mg Referrals: Jose Reddy MD [Primary Care Provider] - Follow up with primary
[2017-10-23 19:11] LABS: TROPONIN I < 0.01 ng/mL
[2017-10-23 19:22] LABS: CK MB% 1.4 % (2.5-3.0)
[2017-10-23 19:52] VITALS: BP 125/65; PULSE 85; RESP 18; TEMP 98.2; O2SAT 94
[2017-10-23] MEDS ORDERED: Albuterol 0.083% Inhal Sol (2.5 mg/3 mL) UD INH STA (20:20)
--- NOTE | 2017-10-23 20:54 | CARD ---
APPROVED REPORT Date of service: 10/23/2017 EKG Measurement Heart [id number] <Conclusion> Normal sinus rhythm with sinus arrhythmia Normal ECG
== END 2017-10-23 21:05 | disposition home or self-care (01) ==
LOC: ED 15:29
DX: J44.1 Chronic obstructive pulmonary disease with (acute) exacerbation (principal); I10 Essential (primary) hypertension; F17.210 Nicotine dependence, cigarettes, uncomplicated
CPT/HCPCS: 71046; 80053; 82550; 82553; 83615; 84484; 85025; 85610; 85730; 93005; 94640; 96374; 99284; J2930